=== PATIENT | male | born 1955 | race Two or more races ===

== ENCOUNTER 2020-04-28 08:41 | Outpatient (CLI) | payer OTHER ==
[~2020-04-28] VITALS: Ht 170.2 cm; Wt 68.9 kg
[2020-04-28] MEDS ORDERED: AZOR 5-40 MG T1 EACH (09:25)
[2020-04-28] MEDS ORDERED: LEVOTHYROXINE (09:26)
[2020-04-28] MEDS ORDERED: AZILECT1 MG (09:26)
[2020-04-28] MEDS ORDERED: [UNRECOGNIZED DRUG - OTHER] (09:27)
[2020-04-28] MEDS ORDERED: ANTIVERT (09:29)
[2020-04-28] MEDS ORDERED: CLARITIN10 MG (09:29)
== END 2020-04-28 11:34 | disposition home or self-care (01) ==
LOC: OFIC 805 08:41
PROVIDERS: ATTEND Otolaryngology Otology & Neurotology
DX: H81.03 Meniere's disease, bilateral (principal); G20 Parkinson's disease